=== PATIENT | female | born 1985 | race Caucasian/White ===

== ENCOUNTER 2018-04-30 19:35 | Emergency (ER) | payer BC ==
[~2018-04-30] VITALS: Ht 177.8 cm; Wt 112.0 kg
[2018-04-30 19:37] VITALS: TEMP 99.7
[2018-04-30] MEDS ORDERED: FOLIC ACID 11 MG/TA1 PO (20:16)
[2018-04-30] MEDS ORDERED: DUEXIS 26.6 MG-1 TAB PO (20:17)
[2018-04-30] MEDS ORDERED: METHOTREXA2.5 MG/TAB PO (20:17)
[2018-04-30 20:39] LABS: ALBUMIN 4.2 gm/dL (3.5-5.0); BILIRUBIN,TOTAL 0.2 mg/dL (0.0-1.0); CREATININE, serum 0.73 mg/dL (0.52-1.25); POTASSIUM 3.8 mmol/L (3.4-5.0); TOTAL PROTEIN 7.6 gm/dL (6.4-8.2)
[2018-04-30 20:46] LABS: BASO % 0.5 % (0.0-2.0); EOS # 0.4 (0.0-0.7); EOS % 4.6 % (0-4.0); GRAN # 4.9 (1.4-6.5); GRAN % 56.2 % (42.2-75.2); HEMOGLOBIN 12.7 g/dl (12.5-16.0); LYMPH # 2.7 (1.2-3.4); LYMPH % 31.3 % (20.0-51.0); MEAN CELL VOLUME 91 fl (80.0-100.0); MEAN CORPUSCULAR HEMOGLOBIN 29 pg (27.0-31.0); MEAN CORPUSCULAR HGB CONC 32 g/dl (33.0-37.0); MONO # 0.6 (0.1-0.6); MONO % 7.1 % (1.7-9.3); PLATELET COUNT 241 K/mm3 (130-400); RED BLOOD COUNT 4.39 M/mm3 (4.10-5.30); REDCELL DISTRIBUTION WIDTH-CV 13.3 % (11.5-14.5)
[2018-04-30 21:18] LABS: COLLECTION METHOD CLEAN CATCH
[2018-04-30 21:25] LABS: MUCOUS Present /lpf; PH 5 (5-8); SQUAMOUS EPITHELIAL 0-2 /hpf; URINE APPEARANCE Clear; URINE BACTERIA None Seen /hpf; URINE BILIRUBIN Negative (NEGATIVE); URINE BLOOD Negative (NEGATIVE); URINE COLOR Yellow; URINE GLUCOSE Negative (NEGATIVE); URINE KETONE Negative (NEGATIVE); URINE LEUKOCYTE ESTERASE Negative (NEGATIVE); URINE NITRATE Negative (NEGATIVE); URINE PROTEIN(semi-quant) Negative (NEGATIVE); URINE RBC 0-2 /hpf; URINE UROBILINOGEN Negative (NEGATIVE)
[2018-04-30] MEDS ORDERED: ANTIVERT 25MG25 MG PO (22:09)
[2018-04-30] MEDS ORDERED: ZOFRAN 4MG T4 MG/TAB PO (22:09)
[2018-04-30 22:32] VITALS: BP 134/60; PULSE 85
== END 2018-04-30 22:32 | disposition home or self-care (01) ==
LOC: COL.ER 19:35
PROVIDERS: Emergency Medicine
DX: R42 Dizziness and giddiness (principal); R51 Headache
CPT/HCPCS: J0780; J1200; J1885; J2405; J7030

== ENCOUNTER → 2019-01-14 | Outpatient (CLI) | payer BC ==
[~2019-01-14] MED LIST: ANTIVERT 25MG25 MG PO; DUEXIS 26.6 MG-1 TAB PO; FOLIC ACID 11 MG/TA1 PO; METHOTREXA2.5 MG/TAB PO; ZOFRAN 4MG T4 MG/TAB PO
== END ==
LOC: COL.RAD 11:30
DX: M48.04 Spinal stenosis, thoracic region (principal); H47.10 Unspecified papilledema; Z90.49 Acquired absence of other specified parts of digestive tract
CPT/HCPCS: Q9967

== ENCOUNTER → 2021-01-17 | Outpatient (CLI) | payer BC | LOC: MC.RAD 08:04 | DX: Z12.31 Encounter for screening mammogram for malignant neoplasm of breast (principal) ==

== ENCOUNTER → 2022-02-27 | Outpatient (CLI) | payer BC ==
[~2022-02-27] MED LIST changes: +CELEXA 20MG20 MG/TAB PO; +PROTONIX 40MG T40 MG PO
== END ==
LOC: MC.RAD 11:15
DX: Z12.31 Encounter for screening mammogram for malignant neoplasm of breast (principal)

== ENCOUNTER 2022-03-09 12:57 | Day surgery (SDC) | payer BC ==
[~2022-03-09] VITALS: Ht 177.8 cm; Wt 129.1 kg
[~2022-03-09 12:57] MED LIST changes: -CELEXA 20MG20 MG/TAB PO; -PROTONIX 40MG T40 MG PO
[2022-03-09 13:21] VITALS: BP 159/107; PULSE 96; TEMP 97.4
[2022-03-09] MEDS ORDERED: PROTONIX 40MG T40 MG PO (13:35)
[2022-03-09] MEDS ORDERED: CELEXA 20MG20 MG/TAB PO (13:35)
[2022-03-09 15:15] VITALS: BP 138/84; PULSE 73; TEMP 97.5
--- NOTE | 2022-03-09 15:15 | NUR ---
PATIENT ARRIVES TO ROOM 7 VIA CART. ASSIST X 1 TO CHAIR. VITAL SIGNS WNL. WAITING FOR DOCTOR TO SPEAK WITH PATIENT. PATIENT REQUESTS MUFFINS, PUDDING, AND WATER. WILL CONTINUE TO MONITOR.
[2022-03-09 15:30] VITALS: BP 138/89; PULSE 79
--- NOTE | 2022-03-09 15:30 | NUR ---
PATIENT IS DOING WELL. NO NAUSEA AFTER EATING AND DRINKING. WAITING FOR DOCTOR TO COME SPEAK WITH HER. FRIEND IS AT BEDSIDE. VITAL SIGNS WNL. WILL CONTINUE TO MONITOR. IV REMOVED.
[2022-03-09 15:45] VITALS: BP 127/83; PULSE 73
--- NOTE | 2022-03-09 15:45 | NUR ---
PATIENT IS READY FOR DISCHARGE. FINAL SET OF VITALS WNL. DOCTOR AT BEDSIDE. DISCHARGE INSTRUCTIONS REVIEWED. WILL DISCHARGE WHEN SHE IS DRESSED.
== END 2022-03-09 16:05 | disposition home or self-care (01) ==
LOC: SDCO 12:57
DX: K52.9 Noninfective gastroenteritis and colitis, unspecified (principal); K92.1 Melena; K21.9 Gastro-esophageal reflux disease without esophagitis
CPT/HCPCS: J2704; J7030

== ENCOUNTER → 2024-03-19 | Outpatient (CLI) | payer BC ==
[~2024-03-19] MED LIST changes: +CELEXA 20MG20 MG/TAB PO; +PROTONIX 40MG T40 MG PO
== END ==
LOC: MC.RAD 10:00
DX: Z12.31 Encounter for screening mammogram for malignant neoplasm of breast (principal)